=== PATIENT | male | born 1965 | race Caucasian/White ===

== ENCOUNTER 2021-09-30 05:56 | Day surgery (SDC) | payer BC ==
[2021-09-27 10:45] VITALS: BMI 34.9
[2021-09-30] MEDS ORDERED: Midazolam HCl 2 mg/2 ml Vial ONE (06:42)
[2021-09-30] MEDS ORDERED: Fentanyl 100 MCG/2 ML VIAL ONE (06:42)
[2021-09-30] MEDS ORDERED: PROPOFOL 20 ML ONE (06:53)
[2021-09-30] MEDS ORDERED: Lidocaine 2% w/Epinephrine 1:200K 20 ML VIAL ONE ×2 (06:53→07:54)
[2021-09-30] MEDS ORDERED: Bupivacaine PF 0.5% 30 ML VIAL ONE ×2 (06:53→07:54)
[2021-09-30] MEDS ORDERED: ceFAZolin (BATCH) 2 GM/100 ML BAG ONE (07:13)
[2021-09-30] MEDS ORDERED: Dexamethasone 20 MG/5 ML VIAL ONE (07:54)
[2021-09-30] MEDS ORDERED: Succinylcholine 200 MG/10 ml SYRINGE FS ONE (07:54)
[2021-09-30] MEDS ORDERED: Ondansetron PF 4 MG/2 ML Vial ONE (07:54)
[2021-09-30] MEDS ORDERED: Lidocaine 1% PF 5 ML VIAL ONE (07:54)
[2021-09-30] MEDS ORDERED: PROPOFOL 200 MG/20 ML VIAL ONE (07:54)
[2021-09-30] MEDS ORDERED: HYDROcodone/Acetaminophen 5/325 mg Tablet ONE (10:22)
== END 2021-09-30 11:15 | disposition home or self-care (01) ==
LOC: SDC 05:56
PROVIDERS: ATTEND Orthopaedic Surgery
PROC: 0SBD4ZZ Excision of Left Knee Joint, Percutaneous Endoscopic Approach (ICD-10-PCS; principal; 2021-09-30)
DX: S83.232A Complex tear of medial meniscus, current injury, left knee, initial encounter (principal); M94.262 Chondromalacia, left knee; X50.1XXA Overexertion from prolonged static or awkward postures, initial encounter; Y93.67 Activity, basketball
CPT/HCPCS: J0690; J2250; J2704; J3010; S0020